=== PATIENT | male | born 1995 | race Caucasian/White ===

== ENCOUNTER 2025-06-04 03:00 | Emergency (ER) | payer SELFPAY ==
[~2025-06-04] VITALS: Ht 167.6 cm; Wt 77.2 kg
[2025-06-04 03:11] VITALS: O2SAT 99
[2025-06-04 03:15] VITALS: BP 102/68; PULSE 96; RESP 16; TEMP 36.8; O2SAT 99
[2025-06-04] MEDS ORDERED: IBUP-1455 MT (03:48)
[2025-06-04] MEDS ORDERED: SULF1TAB48 MT (03:48)
[2025-06-04] MEDS ORDERED: BO1 TP (03:48)
[2025-06-04] MEDS: SULFAMETHOXAZOLE/TRIMETHOPRIM 800/160MG TABLET PO ONE (03:54)
[2025-06-04] MEDS: TETANUS, DIPHTHERIA, PERTUSSIS VAC/PF 0.5ML (>10YR OLD) IM ONE (03:55)
== END 2025-06-04 04:09 | disposition home or self-care (01) ==
LOC: ER 03:00
DX: S61.211A Laceration without foreign body of left index finger without damage to nail, initial encounter (principal); Z23 Encounter for immunization; W26.0XXA Contact with knife, initial encounter; Y93.89 Activity, other specified; Y92.89 Other specified places as the place of occurrence of the external cause; Y99.8 Other external cause status
CPT/HCPCS: 90471; 90715; 99283